=== PATIENT | female | born 1940 | race Two or more races ===

== ENCOUNTER 2021-07-29 22:27 | Emergency (ER) | payer OTHER ==
[~2021-07-29] VITALS: Ht 149.9 cm; Wt 72.1 kg
[2021-07-29] MEDS ORDERED: GLIPIZIDE XL2.5 MG (22:43)
[2021-07-29] MEDS ORDERED: VASOTEC5 MG (22:44)
[2021-07-30] MEDS ORDERED: MOBIC15 MG PO (03:05)
== END 2021-07-30 03:10 | disposition home or self-care (01) ==
LOC: ER 22:27
DX: S62.525A Nondisplaced fracture of distal phalanx of left thumb, initial encounter for closed fracture (principal); S80.01XA Contusion of right knee, initial encounter; S00.83XA Contusion of other part of head, initial encounter; W18.39XA Other fall on same level, initial encounter; Y93.9 Activity, unspecified; Y92.59 Other trade areas as the place of occurrence of the external cause; Y99.9 Unspecified external cause status